=== PATIENT | female | born 1975 | race Caucasian/White ===

== ENCOUNTER → 2021-07-22 03:13 | Outpatient (CLI) | payer OTHER, SELFPAY ==
[2021-07-22 17:41] LABS: SARS-CoV-2 RNA PCR Negative
== END ==
PROVIDERS: Visit Provider Obstetrics & Gynecology
DX: N75.0 Cyst of Bartholin's gland (principal); Z20.822 Contact with and (suspected) exposure to COVID-19; Z01.812 Encounter for preprocedural laboratory examination
CPT/HCPCS: C9803; U0003; U0005

== ENCOUNTER 2021-07-25 02:40 | Day surgery (SDC) | payer OTHER, SELFPAY ==
[2021-07-18 17:07] VITALS: BMI 23.8
[2021-07-25] MEDS: LACTATED RINGERS 1,000 ML 30 ML IV CONT ×2 (10:40→12:35)
[2021-07-25 10:44] VITALS: BP 116/75; PULSE 94; TEMP 36.9; O2SAT 98
--- NOTE | 2021-07-25 11:04 | WPDANESEPPF ---
Anes - Initial Pre Proc Eval Procedure: Operation Date: 07/25/21 12:00 Proposed Procedures p Marsupialization Of Right Bartholin's Gland Cyst - Kaley Pradhan MD Date/Time: 07/25/21 11:04 Surgeon: Kaley Pradhan MD Pre Op Diagnosis: cyst of right bartholin gland duct Patient Data Age: 45 Gender: F Height: 1.68 m Weight: 65.8 kg Last Vital Signs Temp 36.9 C 07/25/21 10:44 Pulse 94 07/25/21 10:44 BP 116/75 07/25/21 10:44 Pulse Ox 98 07/25/21 10:44 Allergies Allergy/AdvReac Type Severity Reaction Status Date / Time amoxicillin [From Augmentin] AdvReac Diarrhea Verified 07/25/21 10:16 clavulanic acid AdvReac Diarrhea Verified 07/25/21 10:15 [From Augmentin] ibuprofen AdvReac Vomiting Verified 07/25/21 10:16 Home Medications Medication Instructions Recorded Confirmed Type atomoxetine [Strattera] 80 mg PO DAILY 07/18/21 07/25/21 History calcium carbonate-vitamin D3 1 tablet PO DAILY 07/18/21 07/25/21 History [Vitamin D3 (with calcium carb)] camphor-menthol [Biofreeze] 1 applic TOPICAL DAILY PRN 07/18/21 07/25/21 History collagen 1 ea MISCELLANEOUS DAILY 07/18/21 07/25/21 History loratadine [Claritin] 10 mg PO DAILY PRN 07/18/21 07/25/21 History multivit with min-folic acid 1 tablet PO DAILY 07/18/21 07/25/21 History [Adult One Daily Multivitamin] tramadol 50 mg PO Q6H PRN 07/18/21 07/25/21 History Patient hx anesthesia problems: none Family hx anesthesia problems: none Results Review: All pre-operative results and documents have been reviewed as part of the pre-operative evaluation. [facility] Past Medical History Medical History ADD (attention deficit disorder) Hx of migraines Social History Social History Smoking packs per day: 1 Smoking cigarettes per day: 20.0 Years smoked: 33 Smoking pack-years: 33.00 Smoking status: Current every day smoker Tobacco type: cigarettes Alcohol intake: current Substance use: never Living arrangements: with friend(s) Spiritual care concerns: No Anes - Eval Final PreProcedure Day of Procedure 07/25/21 11:04 Patient weight: normal Heart: regular rate and rhythm Lungs: decreased breath sounds Airway: Mallampati scale class 1 Neurological: alert and oriented Last oral intake: >/= 8 hours ASA classification: III Emergent: no Anesthetic plan: proceed Anesthesia type and monitoring: general LMA and standard monitoring Results Review: All pre-operative results and documents have been reviewed as part of the pre-operative evaluation. Informed Consent: The patient's anesthetic plan and its attendant risks and benefits were discussed with the patient/family/POA. Questions were solicited and answers provided to the satisfaction of the patient/family/POA.
--- NOTE | 2021-07-25 12:00 | PM.IMHP ---
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 Three major episodes prior to this one where it was drained or drained spontaneously, and several minor episodes. Since visit in office last week pain is worse, and thinks this one is getting infected now. This one has not drained. Always right side. Review of Systems Review of Systems: All systems reviewed & are unremarkable except as noted in HPI and below PMFSH Past Medical History Medical History ADD (attention deficit disorder) Hx of migraines Social History Social History Smoking packs per day: 1 Smoking cigarettes per day: 20.0 Years smoked: 33 Smoking pack-years: 33.00 Smoking status: Current every day smoker Tobacco type: cigarettes Alcohol intake: current Substance use: never Living arrangements: with friend(s) Spiritual care concerns: No Meds Home Medications and Allergies Home Medications Medication Instructions Recorded Confirmed Type atomoxetine [Strattera] 80 mg PO DAILY 07/18/21 07/25/21 History calcium carbonate-vitamin D3 1 tablet PO DAILY 07/18/21 07/25/21 History [Vitamin D3 (with calcium carb)] camphor-menthol [Biofreeze] 1 applic TOPICAL DAILY PRN 07/18/21 07/25/21 History collagen 1 ea MISCELLANEOUS DAILY 07/18/21 07/25/21 History loratadine [Claritin] 10 mg PO DAILY PRN 07/18/21 07/25/21 History multivit with min-folic acid 1 tablet PO DAILY 07/18/21 07/25/21 History [Adult One Daily Multivitamin] tramadol 50 mg PO Q6H PRN 07/18/21 07/25/21 History Allergies Allergy/AdvReac Type Severity Reaction Status Date / Time amoxicillin [From Augmentin] AdvReac Diarrhea Verified 07/25/21 10:16 clavulanic acid AdvReac Diarrhea Verified 07/25/21 10:15 [From Augmentin] ibuprofen AdvReac Vomiting Verified 07/25/21 10:16 Vital Signs Vital Signs - 24 hr 07/25/21 10:44 Temperature 98.5 F Pulse Rate 94 Blood Pressure 116/75 Pulse Oximetry 98 Exam Const: General: no acute distress Resp: Effort & Inspection: normal respiratory effort Auscultation: clear to auscultation bilaterally Cardio: Rate: regular rate Rhythm: regular rhythm GI: GI Palp: Yes Soft to palpation Extrem: General: normal to inspection Assessment and Plan Additional Plan Previously consented for marsupilization of right Bartholins due to recurrent history. Discussed RBA, will proceed. Ancef.
--- NOTE | 2021-07-25 12:02 | WPDHPUPDATE1 ---
History and Physical Update Update Date/Time: 07/25/21 12:02 History and Physical has been reviewed, including an updated exam of the patient. There are NO changes in the patient's condition. Risks, benefits, and alternatives have been discussed and questions answered. Patient agrees to proceed with procedure.
[2021-07-25] MEDS: ceFAZolin 2 GM/D5W 50 ML 2 GM/50 ML BAG IVPB (12:06)
[2021-07-25] MEDS: LIDO 1%/EPINEPHRINE 1:100,000 50 ML VIAL INFILTRATE (12:20)
[2021-07-25] MEDS: KETOROLAC 30 MG/ML VIAL (*BKC) IV PUSH (12:28)
[2021-07-25 12:35] VITALS: BP 125/62; PULSE 83; RESP 12; O2SAT 95
--- NOTE | 2021-07-25 12:56 | W.PM.PROC2 ---
Procedure Note - Detailed Date of Procedure 07/25/21 Pre-op Diagnosis cyst of right bartholin gland duct Post-op Diagnosis same Procedure Performed Marsupialization of right Bartholin's cyst Surgeon Kaley Pradhan MD Facing End Trimmer none Anesthesia MAC and local Description of Procedure The patient was taken to the operating room and placed in supine position. She received MAC and was placed in dorsal lithotomy in stirrups. The vulva and vagina were prepped and draped. 4cc lidocaine instilled bilaterally in the skin over the Bartholin cyst. A 2cm incision was made just external to the hymen over the Bartholin cyst. The cyst wall, likewise, was incised. Bloody/purulent material drained and was cultured. The remainder was expressed. The cyst wall was circumferentially sutured to the mucosa using 2-0 vicryl in interrupted sutures. Hemostasis was excellent following pressure. The patient was awakened from anesthesia and taken to the recovery room in good condition. Drains No Packing No Pathology none sent Complications No immediate complications Condition stable Disposition floor
[2021-07-25 13:05] VITALS: BP 163/96; PULSE 74; RESP 16
[2021-07-25 13:26] VITALS: BP 154/87; PULSE 72; RESP 16
== END 2021-07-25 13:40 | disposition home or self-care (01) ==
PROVIDERS: PCP Family Medicine; Visit Provider Obstetrics & Gynecology
PROC: (CPT 56440; principal; 2021-07-25 12:00)
DX: N75.0 Cyst of Bartholin's gland (principal); F98.8 Other specified behavioral and emotional disorders with onset usually occurring in childhood and adolescence; F17.210 Nicotine dependence, cigarettes, uncomplicated
CPT/HCPCS: 56440; 87070; 87075; 87076; 87205; A9270; C9803; J0690; J1100; J1885; J2250; J2405; J2704; J3010; J7120; U0003; U0005